=== PATIENT | male | born 1975 | race Caucasian/White ===

== ENCOUNTER → 2021-03-13 10:57 | Outpatient (BNVA) | payer SELFPAY | PROVIDERS: Family Provider Nurse Practitioner; PCP Family Medicine Adult Medicine; Visit Provider Family Medicine Adult Medicine | DX: M10.9 Gout, unspecified (principal); R03.0 Elevated blood-pressure reading, without diagnosis of hypertension; E66.9 Obesity, unspecified; Z83.3 Family history of diabetes mellitus | CPT/HCPCS: 80053; 83036; 84443; 84550; 85025 ==

== ENCOUNTER 2021-09-15 05:01 | Inpatient (IN) | payer OTHER, SELFPAY ==
[2021-09-15] VITALS (13 sets, daily range): BP systolic 117–192; BP diastolic 76–109; PULSE 89–116; RESP 18–22; TEMP 36.9–37.9; O2SAT 87–94; BMI 41.3; BMI 39.8
--- NOTE | 2021-09-15 05:19 | PC.NURSE ---
asked to wait in vehicle due to her being positive for covid as well.
--- NOTE | 2021-09-15 05:21 | XRR_ITS ---
PROCEDURE INFORMATION: Exam: XR Chest Exam date and time: 09/15/2021 5:21 AM Age: 45 years old Clinical indication: Patient HX: SOB coughing , positive for covid TECHNIQUE: Imaging protocol: XR of the chest. Views: 1 view. Total images: 1 COMPARISON: CR Chest 1 [place] [id number] 02/10/2015 2:05 PM FINDINGS: Lungs: Bilateral patchy airspace densities, favoring pneumonia, possibly atypical pneumonia. Pleural spaces: Unremarkable. No pleural effusion. No pneumothorax. Heart/Mediastinum: Low lung volumes are present, accentuating cardiac size and pulmonary markings. Bones/joints: Osseous structures are unchanged from the prior exam. XR/XR chest 1V portable [id number] IMPRESSION: 1. Bilateral patchy airspace densities, favoring pneumonia, possibly atypical pneumonia. 2. Low lung volumes are present, accentuating cardiac size and pulmonary markings.
--- NOTE | 2021-09-15 05:25 | ED_ITS ---
Documented by User: Damion Cooley MD 09/17/21 06:16 HPI - COVID General: Chief Complaint: COVID symptoms Stated Complaint: Covid +\N\V SOB Time Seen by Provider: 09/15/21 05:04 Source: patient Mode of arrival: ambulatory Limitations: no limitations Triage information: Has fever, cough or shortness of breath . No known COVID + exposure last 14 days History of Present Illness: HPI Narrative: 35-year-old male who has had cough congestion body aches nausea vomiting for roughly 11 days now he did test positive for Covid last week. He states that over the last 2 days he is just had increasing cough shortness of breath a lot of nausea vomiting states he is unable to tolerate any p.o. when he feels dehydrated patient is hypoxic here when he walked into the room and is 85% up after sitting for a while went up to 89% on room air. He has had body aches and fevers denies any chest pain. COVID 19 common symptoms: positive fever(s), chills, dyspnea, body aches, nausea and vomiting; negative headache(s) or throat pain COVID 19 other sytmptoms: negative chest pain COVID Results: SARS-CoV-2 Antigen (Rapid) Positive (Negative) H 09/15/21 07:32 09/15/21 Nasal/Oral Coronavirus 2019 PCR Detected H 09/15/21 07:34 09/15/21 Review of Systems Const: Reports: fever(s), chills and body aches Eyes: Denies: blurry vision or eye discomfort ENMT: Denies: throat pain or dental pain Card: Denies: chest pain Resp: Reports: dyspnea GI: Reports: nausea and vomiting : Denies: dysuria Musc: Denies: neck pain or back pain Skin/Breast: Denies: rash Neuro: Denies: headache(s) Psych: Denies: depression Nicholas/Lymph: Denies: easy bruising All/Imm: Denies: urticaria PFSH ED PFSH: Medical History Elevated blood pressure reading Family history of diabetes mellitus Gout of right foot Morbid obesity with BMI of 40.0-44.9, adult Family History Other Diabetes Hyperlipidemia Hypertension Social History Smoking and tobacco status: former smoker Alcohol intake: never Marital status: Life Partner Number of children: 0 Current occupational status: employed Physical Exam Const: COMMON NORMALS: patient oriented x3 GENERAL APPEARANCE: ill appearing HENMT: COMMON NORMALS: normocephalic and atraumatic HEAD & SCALP: n ormocephalic and atraumatic Eye: COMMON NORMALS: Equal, round and reactive pupils present and EOMs intact bilaterally PUPIL: Yes Equal, round and reactive pupils present Neck/C-Spine: COMMON NORMALS: full ROM and supple Chest: COMMONS NORMALS: normal inspection of the chest and normal palpation of entire chest wall Resp: COMMON NORMALS: normal respiratory effort, No retractions and No use of accessory muscles AUSCULTATION: rales Cardio: COMMON NORMALS: regular rate, regular rhythm and No murmurs present (Cardio) RATE: regular rate RHYTHM: regular rhythm GI: COMMON NORMALS: Normal to inspection, nondistended, normoactive bowel sounds present, Soft to palpation, non-tender and no masses PALPATION: Yes Soft to palpation Extremity: COMMON NORMALS: normal to inspection and full ROM Neuro: COMMON NORMALS: patient oriented x3, moves all extremities and no focal motor deficits Psych: COMMON NORMALS: mental status grossly normal, Normal thought process present and cooperative THOUGHT PROCESS: Normal thought process present Skin: COMMON NORMALS: no rashes or lesions noted and no wounds GENERAL SKIN EXAM: no rashes or lesions noted Course Vital Signs: Vital signs: Vital Signs Temperature 98.3 F 09/18/21 16:02 Pulse Rate 82 09/18/21 16:02 Respiratory Rate 17 09/18/21 16:02 Blood Pressure 125/80 09/18/21 16:02 Pulse Oximetry 90 09/18/21 16:02 MDM - COVID MDM Narrative: Medical decision making narrative: Patient presents here with cough fever and Covid patient's care was turned over to Dr. العلي at shift change Lab Data: Labs: Lab Results 09/15/21 09/15/21 09/15/21 05:49 06:10 06:10 WBC RBC Hgb Hct MCV MCH MCHC RDW Plt Count MPV Neut % (Auto) Lymph % (Auto) [place] % (Auto) Eos % (Auto) Baso % (Auto) Neut # (Auto) Lymph # (Auto) [place] # (Auto) Eos # (Auto) Baso # (Auto) Nucleated RBC % (a uto) Nucleated RBCs # D-Dimer 1.27 ug/mIFEU H u g/mIFEU (0-0.59) Specimen Type Venous Sample Site Radial, left ABG pH 7.46 H (7.35-7.45) ABG pCO2 38.3 mmHg mmHg (35-45) ABG pO2 37.2 mmHg L* mmHg (80.0-100.0) ABG HCO3 27.4 mmol/L H mmo l/L (22-26) ABG Base Excess 3.5 mmol/L H mmol /L (-2.0-2.0) Arnaud Test Pos Hematocrit 53.5 % H % (42-52) O2 Delivery Device Nc O2 Liters/Min 3.0 % % Drier Tender Naphthalene ID Joner Sodium 133 mmol/L L mmol /L (136-145) Potassium 3.7 mmol/L mmol/L (3.5-5.1) Chloride 95 mmol/L L mmol/ L (98-107) Carbon Dioxide 21 mmol/L L mmol/ L (22-29) Anion Gap 20.7 H (5-19) BUN 17 mg/dL mg/dL (6-20) Creatinine 0.8 mg/dL mg/dL (0.7-1.2) GFR Calculation 104.1 mL/min mL/m in (90-130) Glucose 129 mg/dL H mg/dL (65-115) Estimat Average Gl ucose Hemoglobin A1c Calculated Osmolal ity 279 mOsm/kg L mOs m/kg (285-295) Lactic Acid Calcium 8.6 mg/dL mg/dL (8.5-10.5) Ferritin 708 ng/mL H ng/mL (30-400) Total Bilirubin 0.4 mg/dL mg/dL (0.15-1.2) AST 34 U/L U/L (0-40) ALT 36 U/L U/L (0-41) Alkaline Phosphata se 81 IU/L IU/L (40-130) C-Reactive Protein 63.0 mg/L H mg/L (0.0-4.9) NT-Pro-B Natriuret Pep 5 pg/mL pg/mL (0-125) Total Protein 7.6 g/dL g/dL (6.6-8.7) Albumin 4.3 g/dL g/dL (3.5-5.2) Globulin 3.3 g/dL g/dL (1.3-4.6) Procalcitonin TSH Nasal/Oral COVID-1 9 PCR SARS-CoV-2 Ag (Rap id) 09/15/21 09/15/21 09/15/21 06:10 06:17 06:17 WBC 7.8 10^3/uL 10^3/ uL (4.0-10.0) RBC 5.64 10^6/uL H 10 ^6/uL (4.1-5.3) Hgb 15.6 g/dL g/dL (11.7-16.6) Hct 46.3 % % (42.0-52.0) MCV 82.1 fl fl (80-94) MCH 27.7 pg L pg (28.0-34.0) MCHC 33.7 g/dL g/dL (30.0-36.0) RDW 13.5 % % (12.1-15.1) Plt Count 306 10^3/cmm 10^3 /cmm (130-400) MPV 9.6 fL fL (7.4-10.4) Neut % (Auto) 79.1 % % Lymph % (Auto) 12.1 % % [place] % (Auto) 7.7 % % Eos % (Auto) 0.0 % % Baso % (Auto) 0.3 % % Neut # (Auto) 6.17 10^3/uL 10^3 /uL (1.8-7.7) Lymph # (Auto) 0.9 10^3/uL 10^3/ uL (0.8-4.8) [place] # (Auto) 0.6 10^3/uL 10^3/ uL (0.2-0.9) Eos # (Auto) 0.0 10^3/uL 10^3/ uL (0.0-0.8) Baso # (Auto) 0.0 10^3/uL 10^3/ uL (0.0-0.1) Nucleated RBC % (a uto) 0 % % Nucleated RBCs # 0.0 /100WBC /100W BC D-Dimer Specimen Type Sample Site ABG pH ABG pCO2 ABG pO2 ABG HCO3 ABG Base Excess Arnaud Test Hematocrit O2 Delivery Device O2 Liters/Min Drier Tender Naphthalene ID Sodium Potassium Chloride Carbon Dioxide Anion Gap BUN Creatinine GFR Calculation Glucose Estimat Average Gl ucose 146 Hemoglobin A1c 6.7 % H % (4.0-6.0) Calculated Osmolal ity Lactic Acid 1.2 mmol/L mmol/L (0.5-2.2) Calcium Ferritin Total Bilirubin AST ALT Alkaline Phosphata se C-Reactive Protein NT-Pro-B Natriuret Pep Total Protein Albumin Globulin Procalcitonin TSH Nasal/Oral COVID-1 9 PCR SARS-CoV-2 Ag (Rap id) 09/15/21 09/15/21 09/15/21 06:17 07:32 07:34 WBC RBC Hgb Hct MCV MCH MCHC RDW Plt Count MPV Neut % (Auto) Lymph % (Auto) [place] % (Auto) Eos % (Auto) Baso % (Auto) Neut # (Auto) Lymph # (Auto) [place] # (Auto) Eos # (Auto) Baso # (Auto) Nucleated RBC % (a uto) Nucleated RBCs # D-Dimer Specimen Type Sample Site ABG pH ABG pCO2 ABG pO2 ABG HCO3 ABG Base Excess Arnaud Test Hematocrit O2 Delivery Device O2 Liters/Min Drier Tender Naphthalene ID Sodium Potassium Chloride Carbon Dioxide Anion Gap BUN Creatinine GFR Calculation Glucose Estimat Average Gl ucose Hemoglobin A1c Calculated Osmolal ity Lactic Acid Calcium Ferritin Total Bilirubin AST ALT Alkaline Phosphata se C-Reactive Protein NT-Pro-B Natriuret Pep Total Protein Albumin Globulin Procalcitonin 0.19 ng/mL ng/mL (0-0.5) TSH 1.68 uIU/mL uIU/m L (0.27-4.20) Nasal/Oral COVID-1 9 PCR Detected H SARS-CoV-2 Ag (Rap id) Positive H (Negative) COVID Results: SARS-CoV-2 Antigen (Rapid) Positive (Negative) H 09/15/21 07:32 09/15/21 Nasal/Oral Coronavirus 2019 PCR Detected H 09/15/21 07:34 09/15/21 Discharge Plan Discharge Patient Disposition: Admitted As Inpatient Admit Provider: Onur Segundo Clinical Impression: COVID-19, Acute respiratory failure with hypoxemia, Morbid obesity with BMI of 40.0-44.9, adult Condition: Stable Discharge Diet: Regular Sign Out Sign Out Data: Patient Sign Out occurred on 09/15/21 at 06:26. Patient's care was discussed, and care was transferred from to Mohamud Carpenter DO. Coding Level of Care Code ED Pit Supervisor for Chg Fwd Exam Comprehensive Documented by User: Mohamud Carpenter DO 09/18/21 16:51 HPI - COVID General: Chief Complaint: COVID symptoms Stated Complaint: Covid +\N\V SOB Time Seen by Provider: 09/15/21 05:04 COVID Results: SARS-CoV-2 Antigen (Rapid) Positive (Negative) H 09/15/21 07:32 09/15/21 Nasal/Oral Coronavirus 2019 PCR Detected H 09/15/21 07:34 09/15/21 PFSH ED PFSH: Medical History Elevated blood pressure reading Family history of diabetes mellitus Gout of right foot Morbid obesity with BMI of 40.0-44.9, adult Family History Other Diabetes Hyperlipidemia Hypertension Social History Smoking and tobacco status: former smoker Alcohol intake: never Marital status: Life Partner Number of children: 0 Current occupational status: employed Course Vital Signs: Vital signs: Vital Signs Temperature 98.3 F 09/18/21 16:02 Pulse Rate 82 09/18/21 16:02 Respiratory Rate 17 09/18/21 16:02 Blood Pressure 125/80 09/18/21 16:02 Pulse Oximetry 90 09/18/21 16:02 MDM - COVID MDM Narrative: Medical decision making narrative: Care assumed a change of shift. Patient will be admitted COVID-19 acute hypoxic respiratory failure. Discussed with Dr. [place] orders written Lab Data: Labs: Lab Results 09/15/21 09/15/21 09/15/21 05:49 06:10 06:10 WBC RBC Hgb Hct MCV MCH MCHC RDW Plt Count MPV Neut % (Auto) Lymph % (Auto) [place] % (Auto) Eos % (Auto) Baso % (Auto) Neut # (Auto) Lymph # (Auto) [place] # (Auto) Eos # (Auto) Baso # (Auto) Nucleated RBC % (a uto) Nucleated RBCs # D-Dimer 1.27 ug/mIFEU H u g/mIFEU (0-0.59) Specimen Type Venous Sample Site Radial, left ABG pH 7.46 H (7.35-7.45) ABG pCO2 38.3 mmHg mmHg (35-45) ABG pO2 37.2 mmHg L* mmHg (80.0-100.0) ABG HCO3 27.4 mmol/L H mmo l/L (22-26) ABG Base Excess 3.5 mmol/L H mmol /L (-2.0-2.0) Arnaud Test Pos Hematocrit 53.5 % H % (42-52) O2 Delivery Device Nc O2 Liters/Min 3.0 % % Drier Tender Naphthalene ID Suri Sodium 133 mmol/L L mmol /L (136-145) Potassium 3.7 mmol/L mmol/L (3.5-5.1) Chloride 95 mmol/L L mmol/ L (98-107) Carbon Dioxide 21 mmol/L L mmol/ L (22-29) Anion Gap 20.7 H (5-19) BUN 17 mg/dL mg/dL (6-20) Creatinine 0.8 mg/dL mg/dL (0.7-1.2) GFR Calculation 104.1 mL/min mL/m in (90-130) Glucose 129 mg/dL H mg/dL (65-115) Estimat Average Gl ucose Hemoglobin A1c Calculated Osmolal ity 279 mOsm/kg L mOs m/kg (285-295) Lactic Acid Calcium 8.6 mg/dL mg/dL (8.5-10.5) Ferritin 708 ng/mL H ng/mL (30-400) Total Bilirubin 0.4 mg/dL mg/dL (0.15-1.2) AST 34 U/L U/L (0-40) ALT 36 U/L U/L (0-41) Alkaline Phosphata se 81 IU/L IU/L (40-130) C-Reactive Protein 63.0 mg/L H mg/L (0.0-4.9) NT-Pro-B Natriuret Pep 5 pg/mL pg/mL (0-125) Total Protein 7.6 g/dL g/dL (6.6-8.7) Albumin 4.3 g/dL g/dL (3.5-5.2) Globulin 3.3 g/dL g/dL (1.3-4.6) Procalcitonin TSH Nasal/Oral COVID-1 9 PCR SARS-CoV-2 Ag (Rap id) 09/15/21 09/15/21 09/15/21 06:10 06:17 06:17 WBC 7.8 10^3/uL 10^3/ uL (4.0-10.0) RBC 5.64 10^6/uL H 10 ^6/uL (4.1-5.3) Hgb 15.6 g/dL g/dL (11.7-16.6) Hct 46.3 % % (42.0-52.0) MCV 82.1 fl fl (80-94) MCH 27.7 pg L pg (28.0-34.0) MCHC 33.7 g/dL g/dL (30.0-36.0) RDW 13.5 % % (12.1-15.1) Plt Count 306 10^3/cmm 10^3 /cmm (130-400) MPV 9.6 fL fL (7.4-10.4) Neut % (Auto) 79.1 % % Lymph % (Auto) 12.1 % % [place] % (Auto) 7.7 % % Eos % (Auto) 0.0 % % Baso % (Auto) 0.3 % % Neut # (Auto) 6.17 10^3/uL 10^3 /uL (1.8-7.7) Lymph # (Auto) 0.9 10^3/uL 10^3/ uL (0.8-4.8) [place] # (Auto) 0.6 10^3/uL 10^3/ uL (0.2-0.9) Eos # (Auto) 0.0 10^3/uL 10^3/ uL (0.0-0.8) Baso # (Auto) 0.0 10^3/uL 10^3/ uL (0.0-0.1) Nucleated RBC % (a uto) 0 % % Nucleated RBCs # 0.0 /100WBC /100W BC D-Dimer Specimen Type Sample Site ABG pH ABG pCO2 ABG pO2 ABG HCO3 ABG Base Excess Arnaud Test Hematocrit O2 Delivery Device O2 Liters/Min Drier Tender Naphthalene ID Sodium Potassium Chloride Carbon Dioxide Anion Gap BUN Creatinine GFR Calculation Glucose Estimat Average Gl ucose 146 Hemoglobin A1c 6.7 % H % (4.0-6.0) Calculated Osmolal ity Lactic Acid 1.2 mmol/L mmol/L (0.5-2.2) Calcium Ferritin Total Bilirubin AST ALT Alkaline Phosphata se C-Reactive Protein NT-Pro-B Natriuret Pep Total Protein Albumin Globulin Procalcitonin TSH Nasal/Oral COVID-1 9 PCR SARS-CoV-2 Ag (Rap id) 09/15/21 09/15/21 09/15/21 06:17 07:32 07:34 WBC RBC Hgb Hct MCV MCH MCHC RDW Plt Count MPV Neut % (Auto) Lymph % (Auto) [place] % (Auto) Eos % (Auto) Baso % (Auto) Neut # (Auto) Lymph # (Auto) [place] # (Auto) Eos # (Auto) Baso # (Auto) Nucleated RBC % (a uto) Nucleated RBCs # D-Dimer Specimen Type Sample Site ABG pH ABG pCO2 ABG pO2 ABG HCO3 ABG Base Excess Arnaud Test Hematocrit O2 Delivery Device O2 Liters/Min Drier Tender Naphthalene ID Sodium Potassium Chloride Carbon Dioxide Anion Gap BUN Creatinine GFR Calculation Glucose Estimat Average Gl ucose Hemoglobin A1c Calculated Osmolal ity Lactic Acid Calcium Ferritin Total Bilirubin AST ALT Alkaline Phosphata se C-Reactive Protein NT-Pro-B Natriuret Pep Total Protein Albumin Globulin Procalcitonin 0.19 ng/mL ng/mL (0-0.5) TSH 1.68 uIU/mL uIU/m L (0.27-4.20) Nasal/Oral COVID-1 9 PCR Detected H SARS-CoV-2 Ag (Rap id) Positive H (Negative) COVID Results: SARS-CoV-2 Antigen (Rapid) Positive (Negative) H 09/15/21 07:32 12/17/21 Nasal/Oral Coronavirus 2019 PCR Detected H 09/15/21 07:34 09/15/21 Discharge Plan Discharge Patient Disposition: Admitted As Inpatient Admit Provider: Onur Segundo Clinical Impression: COVID-19, Acute respiratory failure with hypoxemia, Morbid obesity with BMI of 40.0-44.9, adult Condition: Stable Discharge Diet: Regular Sign Out Sign Out Data: Patient Sign Out occurred on 09/15/21 at 06:26. Patient's care was discussed, and care was transferred from to Mohamud Carpenter DO. Coding Level of Care Code ED Pit Supervisor for Chg Fwd Exam Comprehensive
[2021-09-15 06:00] LABS: ABG PCO2 38.3 mmHg (35-45); ABG PH Result 7.46 (7.35-7.45); Arterial Blood Gas Hematocrit 53.5 % (42-52); Base Excess ABG 3.5 mmol/L (-2.0-2.0); Blood Gas Allen Test Pos; HCO3 ABG 27.4 mmol/L (22-26); PO2 ABG 37.2 mmHg (80.0-100.0)
[2021-09-15 06:05] LABS: Blood Gas Sample Type Venous
[2021-09-15 06:06] LABS: Blood Gas Sample Site Radial, left; Oxygen Device NC
[2021-09-15] MEDS: ondansetron 2 mg/ML SDV 2 mL 4 MG IV (06:11)
[2021-09-15] MEDS: dexamethasone 4 mg/mL INJ 6 MG IVP (06:13)
[2021-09-15] MEDS: sodium chloride 0.9% 1,000 ML 999 ML IV (06:16)
[2021-09-15] MEDS: acetaminophen 325 mg Tablet 650 MG PO ×2 (06:18→22:00)
[2021-09-15 06:33] LABS: Basophils % 0.3 %; Hematocrit 46.3 % (42.0-52.0); Hemoglobin 15.6 g/dL (11.7-16.6); Lymphocytes # 0.9 10^3/uL (0.8-4.8); Lymphocytes % 12.1 %; Mean Corpuscular HGB Conc 33.7 g/dL (30.0-36.0); Mean Corpuscular Hemoglobin 27.7 pg (28.0-34.0); Mean Corpuscular Volume 82.1 fl (80-94); Mean Platelet Volume 9.6 fL (7.4-10.4); Monocytes # 0.6 10^3/uL (0.2-0.9); Monocytes % 7.7 %; Neutrophils # 6.17 10^3/uL (1.8-7.7); Neutrophils % 79.1 %; Nucleated Red Blood Cells % 0 %; Platelet Count 306 10^3/cmm (130-400); Red Blood Count 5.64 10^6/uL (4.1-5.3); Red Cell Distribution Width 13.5 % (12.1-15.1); White Blood Count 7.8 10^3/uL (4.0-10.0)
[2021-09-15 07:04] LABS: Alanine Aminotransferase 36 U/L (0-41); Albumin Level 4.3 g/dL (3.5-5.2); Alkaline Phosphatase 81 IU/L (40-130); Anion Gap 20.7 (5-19); Aspartate Amino Transferase 34 U/L (0-40); Blood Urea Nitrogen 17 mg/dL (6-20); Calcium 8.6 mg/dL (8.5-10.5); Carbon Dioxide 21 mmol/L (22-29); Chloride 95 mmol/L (98-107); Ferritin 708 ng/mL (30-400); Globulin 3.3 g/dL (1.3-4.6); Glomerular Filtration Rate 104.1 mL/min (90-130); Glucose 129 mg/dL (65-115); Lactic Sepsis W/Reflex 1.2 mmol/L (0.5-2.2); NT Pro B Type Natriuretic Pept 5 pg/mL (0-125); Osmolality Calculated 279 mOsm/kg (285-295); Potassium 3.7 mmol/L (3.5-5.1); Sodium 133 mmol/L (136-145); Total Bilirubin 0.4 mg/dL (0.15-1.2); Total Protein 7.6 g/dL (6.6-8.7)
--- NOTE | 2021-09-15 07:35 | PC.NURSE ---
Received report from Josephine ARITA. Pt reporting he does feel much better then upon arrival. Pt currently on 3L O2 and stated he does not normally wear oxygen at home.
[2021-09-15 08:16] LABS: SARS Covid-2 Antigen Positive (Negative)
--- NOTE | 2021-09-15 09:20 | P.HP_ITS ---
Providers/Chief Complaint Primary Care Provider: Rayo Lin MD Chief Complaint: Covid +\N\V SOB History of Present Illness Jasson Hess is a 45 year old male who presents with history of illness since the sixth. It started with cough and nasal congestion, culminating in significant shortness of breath, cough with some posttussive emesis, diaphoresis. He denies any chest pain, or hemoptysis. He reports he has not been able to eat or drink well since getting illness. Family members have been ill with similar symptoms. He is not vaccinated. He does feel less short of breath on oxygen. Review of Systems General: Reports: 10 or more systems reviewed and unremarkable except in HPI and below Const: Reports: fever(s), chills, body aches and malaise Eyes: Denies: change in vision ENMT: Denies: throat pain Card: Denies: chest pain Resp: Reports: dyspnea and productive cough GI: Reports: diarrhea; Denies: abdominal pain : Denies: flank pain Musc: Denies: neck pain or back pain Skin/Breast: Denies: rash Neuro: Denies: headache(s) Psych: Denies: anxiety or depression Endo: Denies: polyuria Nicholas/Lymph: Denies: easy bruising All/Imm: Denies: urticaria Medications/Allergies Home Medications Medication Instructions Recorded Confirmed Last Taken Type bupropion HCl 150 mg tablet,12 hr 150 mg PO QAM #30 tab 04/17/21 04/17/21 Unknown Rx sustained-release indomethacin 50 mg capsule 50 mg PO QID PRN cap 04/17/21 04/17/21 Unknown History allopurinol 300 mg tablet 150 mg PO BID 90 Days #90 tab 05/10/21 Unknown Rx Allergies Allergy/AdvReac Type Severity Reaction Status Date / Time No Known Allergies Allergy Verified 04/17/21 09:31 PFSH Acute PFSH: Medical History Elevated blood pressure reading Family history of diabetes mellitus Gout of right foot Morbid obesity with BMI of 40.0-44.9, adult Family History Other Diabetes Hyperlipidemia Hypertension Social History Smoking and tobacco status: former smoker Alcohol intake: never Marital status: Life Partner Number of children: 0 Current occupational status: employed [employer] Information: Denies surgical history Vitals/I&O/Wt Last Vital Signs Temp 100.3 F H 09/15/21 05:07 Pulse 91 09/15/21 07:11 Resp 20 H 09/15/21 07:11 BP 130/89 09/15/21 07:11 Pulse Ox 93 09/15/21 07:11 Weight last 48 hrs Weight 123.377 kg Physical Exam Narrative: EXAM NARRATIVE: General exam is a gregarious male who is tachypneic, and from my discussion with the emergency department physician obviously dyspneic with some accessory muscle use on arrival prior to being placed on 3 L of oxygen. HEENT: Pupils equally round. Oropharynx clear. Neck is supple no lymphadenopathy or thyromegaly Cardiovascular regular rate and rhythm, no murmur Lungs few scattered crackles bilaterally Abdomen is soft with positive bowel sounds. Obese. No obvious organomegaly exam is deferred Extremities no cyanosis clubbing or edema, cap refill brisk Skin no rash Neuro no focal deficits. Data : 09/15/21 06:17 09/15/21 06:10 Micro: Microbiology 09/15/21 06:50 Blood Culture - Preliminary Blood SPECIMEN COLLECTED 09/15/21 06:10 Blood Culture - Preliminary Blood SPECIMEN COLLECTED Other data: Chest x-ray multiple bilateral opacities consistent with interst itial infiltrates and Covid Rapid Covid positive ABG demonstrates a pH 7.46, PCO2 of 38, PO2 37 ?VBG CMP demonstrates normal lactic acid at 1.2, normal LFTs, elevated ferritin. CRP 63 A&P Assessment and plan (1) Acute respiratory failure with hypoxemia: Oxygen initiated in the emergency department with improvement in symptoms of tachypnea Status: Acute (2) Pneumonia due to COVID-19 virus: Patient initially had symptom onset around the sixth, tested positive at outside laboratory on the eighth. Remdesivir, dexamethasone initiated For any worsening and continued inflammatory marker elevation consider baricitinib or Actemra Pulmonary toilet Incentive spirometry Prone is much as possible Repeat CRP tomorrow Check procalcitonin Doxycycline p.o. empirically Blood culture has been done Sputum culture Status: Acute Additional A&P Information Multiple other stable medical problems as outlined in past medical history including gout Slight elevation in sugar. Check TSH and hemoglobin A1c Full code Lovenox for DVT prophylaxis Pepcid for GI prophylaxis Attestations Medical Necessity Statement*: Will need greater than two midnight stay for treatment of Covid 19 pneumonia, severe with acute hypoxic respiratory failure Time Spent in Patient Care: Greater than 35 minutes Coding Level of Care Code Acute Marine Engineering Professor for [facility] Fwd Diagnoses Acute respiratory failure with hypoxemia J96.01 Pneumonia due to COVID-19 virus U07.1; J12.82
[2021-09-15 10:02] LABS: D Dimer 1.27 ug/mIFEU (0-0.59)
[2021-09-15 10:11] LABS: Estmated Average Glucose 146; Hemoglobin A1C 6.7 % (4.0-6.0)
[2021-09-15 10:13] LABS: Procalcitonin 0.19 ng/mL (0-0.5); Thyroid Stimulating Hormone 1.68 uIU/mL (0.27-4.20)
[2021-09-15] MEDS: remdesivir 200 MG in sodium chloride 0.9% (100 ml) 60 ML 100 MG IV (10:59)
[2021-09-15 14:39] LABS: Coronavirus Test Green County Detected
--- NOTE | 2021-09-15 16:51 | PC.NURSE ---
Report called to Zayra on Med Surg. Pt is going to room 269-8
[2021-09-15] MEDS: famotidine 20 mg Tablet PO (18:31)
[2021-09-15] MEDS: doxycycline 100 mg Tablet PO (18:31)
[2021-09-15] MEDS: allopurinol 300 mg Tablet 150 MG PO (18:31)
[2021-09-15] MEDS: enoxaparin 40 mg/0.4 mL Syringe SUBCUT (18:32)
[2021-09-15 21:18] LABS: Glucose Point of Care 118 mg/dL (70-110)
[2021-09-16] VITALS (10 sets, daily range): BP systolic 129–148; BP diastolic 71–86; PULSE 65–112; RESP 16–32; TEMP 36.5–37.7; O2SAT 87–93
[2021-09-16] MEDS: ipratropium-albuterol 3 mL Neb INHALATION (02:06)
[2021-09-16] MEDS: buPROPion SR (12 HR) 150 mg Tablet PO (06:04)
[2021-09-16] MEDS: remdesivir 100 MG in sodium chloride 0.9% (100 ml) 80 ML IV (06:04)
[2021-09-16] MEDS: dexamethasone 10 mg/mL INJ 6 MG IVP (06:10)
--- NOTE | 2021-09-16 06:28 | PC.NURSE ---
VITAL SIGN ASSESSMENT: WHEN ENTERING THE PATIENT ROOM IT WAS NOTED THE PATIENT WAS EXPERIENCING PURSED LIP BREATHING. AT THIS TIME THE O2 LEVEL WAS 73%. OXYGEN TURNED UP FROM 7 L TO 10 L WITH IMPROVEMENT TO 86%. UNFORTUNATELY THE LEVELS BEGAN TO DROP AND BOUNCE BETWEEN 85 AND 80%. THIS NURSE APPLIED AN OXY MASK AND 8 LITERS OF OXYGEN. THE PATIENT THEN PROGRESSED TO 91% O2 SATS. PATIENTS PRIMARY NURSE IN ROOM AT THIS TIME WELL.
[2021-09-16 06:39] LABS: Basophils % 0.3 %; Hematocrit 45.4 % (42.0-52.0); Hemoglobin 14.4 g/dL (11.7-16.6); Lymphocytes # 1.4 10^3/uL (0.8-4.8); Lymphocytes % 17.3 %; Mean Corpuscular HGB Conc 31.7 g/dL (30.0-36.0); Mean Corpuscular Hemoglobin 27.6 pg (28.0-34.0); Mean Platelet Volume 9.6 fL (7.4-10.4); Monocytes # 0.7 10^3/uL (0.2-0.9); Monocytes % 8.8 %; Nucleated Red Blood Cells % 0 %; Platelet Count 299 10^3/cmm (130-400); Red Blood Count 5.22 10^6/uL (4.1-5.3); Red Cell Distribution Width 13.9 % (12.1-15.1); White Blood Count 7.8 10^3/uL (4.0-10.0)
--- NOTE | 2021-09-16 06:45 | PC.NURSE ---
CHASTITY Rodriguez entered room to obtain vital signs at approxiamtely 0500. Patient was noted to short of breath, had pursed lip breathing, and oxygen saturations were down to 73% on 7L nasal canula. Patient was moved to sit in a chair and placed on 8L oxymask. Patient recovered to 91% after a couple minutes when this nurse walked into the room. Patient was saturating 95% around 0600 on the 8L.
[2021-09-16 06:59] LABS: Glucose Point of Care 132 mg/dL (70-110)
[2021-09-16 06:59] LABS: Glucose Point of Care 120 mg/dL (70-110)
[2021-09-16 07:00] LABS: Alanine Aminotransferase 32 U/L (0-41); Albumin Level 3.8 g/dL (3.5-5.2); Alkaline Phosphatase 70 IU/L (40-130); Anion Gap 24.1 (5-19); Aspartate Amino Transferase 37 U/L (0-40); Blood Urea Nitrogen 18 mg/dL (6-20); C Reactive Protein 64.2 mg/L (0.0-4.9); Calcium 8.3 mg/dL (8.5-10.5); Carbon Dioxide 19 mmol/L (22-29); Chloride 99 mmol/L (98-107); Creatinine Clr Calc Pharmacy 115.6414; Globulin 3.3 g/dL (1.3-4.6); Glomerular Filtration Rate 80.4 mL/min (90-130); Glucose 127 mg/dL (65-115); Osmolality Calculated 289 mOsm/kg (285-295); Potassium 4.1 mmol/L (3.5-5.1); Sodium 138 mmol/L (136-145); Total Bilirubin 0.4 mg/dL (0.15-1.2); Total Protein 7.1 g/dL (6.6-8.7)
[2021-09-16] MEDS: doxycycline 100 mg Tablet PO (09:27)
[2021-09-16] MEDS: allopurinol 300 mg Tablet 150 MG PO ×2 (09:28→17:15)
[2021-09-16] MEDS: famotidine 20 mg Tablet PO ×2 (09:29→17:16)
[2021-09-16 11:08] LABS: Glucose Point of Care 175 mg/dL (70-110)
[2021-09-16] MEDS: insulin lispro 100 unit/1 mL SUBCUT (12:06)
--- NOTE | 2021-09-16 15:47 | P.PN_ITS ---
Subjective Subjective: Interval history: Patient is doing well on 5 nasal cannula he is endorsing feeling better, was able to finish his meal today Afebrile Vitals/I&O/Wt Last Vital Signs Temp 98.2 F 09/16/21 12:00 Pulse 96 09/16/21 12:00 Resp 32 H 09/16/21 12:00 BP 129/78 09/16/21 12:00 Pulse Ox 89 L 09/16/21 12:00 09/16/21 09/16/21 09/16/21 06:59 14:59 22:59 Intake Total 400 / 400 Output Total 350 / 350 Balance 50 / 50 Weight last 48 hrs Weight 118.841 kg Weight 123.377 kg Physical Exam Narrative: EXAM NARRATIVE: Sitting in recliner Saturating well on 5 L cannula No active rhonchi or wheezing Productive cough brown-yellow sputum Distended abdomen, visceral obesity No signs of edema EOMI, PERRLA Nonfocal neuro exam Data : 09/16/21 06:25 09/16/21 06:25 Micro: Microbiology 09/15/21 06:50 Blood Culture - Preliminary Blood NEGATIVE TO DATE 09/15/21 06:10 Blood Culture - Preliminary Blood NEGATIVE TO DATE A&P Assessment and plan (1) Pneumonia due to COVID-19 virus: Status: Acute Additional A&P Information Hypoxia related to COVID-19 without respiratory failure No signs of conversational dyspnea Doing well on 5 L nasal cannula Continue steroids and antiviral Plan to discharge him on Saturday if he stays clinically stable New diagnosis of type 2 diabetes start Lantus 10 units along with sliding scale and consistent carb diet Hemoglobin A1c 6.7. Attestations Medical Necessity Statement*: cx med rx Time Spent in Patient Care: less than 15 minutes Coding Level of Care Code Acute Quality Assurance Inspector for Chg Fwd Diagnoses Pneumonia due to COVID-19 virus U07.1; J12.82
[2021-09-16] MEDS: enoxaparin 40 mg/0.4 mL Syringe SUBCUT (17:16)
[2021-09-16 17:27] LABS: Glucose Point of Care 142 mg/dL (70-110)
[2021-09-16] MEDS: insulin glargine 100 units/1 mL 10 UNIT SUBCUT (21:59)
[2021-09-17] VITALS (11 sets, daily range): BP systolic 116–143; BP diastolic 65–87; PULSE 64–100; RESP 15–18; TEMP 36.8–37.8; O2SAT 85–95
[2021-09-17 03:06] LABS: Basophils % 0.3 %; Hematocrit 40.7 % (42.0-52.0); Hemoglobin 13.6 g/dL (11.7-16.6); Lymphocytes # 1.5 10^3/uL (0.8-4.8); Lymphocytes % 21.1 %; Mean Corpuscular HGB Conc 33.4 g/dL (30.0-36.0); Mean Corpuscular Hemoglobin 27.9 pg (28.0-34.0); Mean Corpuscular Volume 83.4 fl (80-94); Mean Platelet Volume 10.1 fL (7.4-10.4); Monocytes # 0.7 10^3/uL (0.2-0.9); Monocytes % 9.7 %; Neutrophils % 68.5 %; Nucleated Red Blood Cells % 0 %; Platelet Count 309 10^3/cmm (130-400); Red Blood Count 4.88 10^6/uL (4.1-5.3); Red Cell Distribution Width 13.8 % (12.1-15.1); White Blood Count 7.2 10^3/uL (4.0-10.0)
[2021-09-17 03:40] LABS: Anion Gap 19.8 (5-19); Blood Urea Nitrogen 19 mg/dL (6-20); C Reactive Protein 77.4 mg/L (0.0-4.9); Calcium 8.3 mg/dL (8.5-10.5); Carbon Dioxide 22 mmol/L (22-29); Chloride 99 mmol/L (98-107); Creatinine Clr Calc Pharmacy 115.6414; Glomerular Filtration Rate 80.4 mL/min (90-130); Glucose 115 mg/dL (65-115); Osmolality Calculated 287 mOsm/kg (285-295); Potassium 3.8 mmol/L (3.5-5.1); Sodium 137 mmol/L (136-145)
[2021-09-17] MEDS: dexamethasone 10 mg/mL INJ 6 MG IVP (06:13)
[2021-09-17] MEDS: buPROPion SR (12 HR) 150 mg Tablet PO (06:41)
[2021-09-17] MEDS: remdesivir 100 MG in sodium chloride 0.9% (100 ml) 80 ML IV (06:41)
[2021-09-17 07:15] LABS: Glucose Point of Care 114 mg/dL (70-110)
[2021-09-17 07:15] LABS: Glucose Point of Care 116 mg/dL (70-110)
[2021-09-17] MEDS: famotidine 20 mg Tablet PO ×2 (09:22→16:44)
[2021-09-17] MEDS: allopurinol 300 mg Tablet 150 MG PO ×2 (09:23→16:44)
--- NOTE | 2021-09-17 12:16 | P.PN_ITS ---
Subjective Subjective: Interval history: Seen this AM. No acute events overnight. COVID PCR positive. on 7L NC this AM. Vitals/I&O/Wt Last Vital Signs Temp 98.2 F 09/17/21 12:00 Pulse 64 09/17/21 12:00 Resp 16 09/17/21 12:00 BP 120/72 09/17/21 12:00 Pulse Ox 95 09/17/21 12:00 09/16/21 09/17/21 09/17/21 22:59 06:59 14:59 Intake Total 370 / 770 340 / 340 Output Total 675 / 1025 Balance 370 / 420 -675 / -255 340 / 340 Weight last 48 hrs Weight 118.841 kg Physical Exam Narrative: EXAM NARRATIVE: Sitting in recliner Saturating well on 7 L cannula No active rhonchi or wheezing Productive cough brown-yellow sputum Obese rounded abdomen, soft, nontender abdomen, visceral obesity No LE edema. EOMI Nonfocal neuro exam Data : 09/17/21 02:11 09/17/21 02:11 Micro: Microbiology 09/15/21 06:50 Blood Culture - Preliminary Blood NEGATIVE TO DATE 09/15/21 06:10 Blood Culture - Preliminary Blood NEGATIVE TO DATE A&P Assessment and plan (1) Pneumonia due to COVID-19 virus: Patient initially had symptom onset around the sixth, tested positive at outside laboratory on the eighth. Remdesivir, dexamethasone initiated For any worsening and continued inflammatory marker elevation consider baricitinib or Actemra Pulmonary toilet Incentive spirometry Prone is much as possible Repeat CRP tomorrow Check procalcitonin Doxycycline p.o. empirically Blood culture has been done Sputum culture Status: Acute Additional A&P Information #Hypoxia related to COVID-19 without respiratory failure No signs of conversational dyspnea Currently on 7L nasal cannula Continue dexamethasone and remdesivir. Will add baricitinib today. Plan to discharge him on Saturday if he stays clinically stable. If deteriorates, will keep patient and escalate O2 therapy as required. New diagnosis of type 2 diabetes. HbA1c 6.7 start Lantus 10 units along with sliding scale and consistent carb diet. At discharge, will transition to oral agent. Glucose higher 2/2 to dexamethasone use as well. WIll need close follow up with PCP for management of diabetes. Attestations Medical Necessity Statement*: COVID positive. Requiring higher level O2. Requires continued inpatient care. Coding Level of Care Code Acute Mailing Machine Helper for g Fwd Diagnoses Pneumonia due to COVID-19 virus U07.1; J12.82
[2021-09-17 12:27] LABS: Glucose Point of Care 159 mg/dL (70-110)
[2021-09-17] MEDS: ipratropium-albuterol 3 mL Neb INHALATION (13:05)
--- NOTE | 2021-09-17 14:16 | XRR_ITS ---
PROCEDURE INFORMATION: Exam: XR Chest Exam date and time: 09/17/2021 2:16 PM Age: 45 years old Clinical indication: Cough and shortness of breath; Additional info: Hypoxia TECHNIQUE: Imaging protocol: XR of the chest. Views: 1 view. COMPARISON: CR XR chest 1V portable [id number] 09/15/2021 6:23 AM FINDINGS: Lungs: Low lung volumes seen. Mild nonspecific interstitial densities are present in both lungs Pleural spaces: Unremarkable. No pleural effusion. No pneumothorax. Heart/Mediastinum: Unremarkable. No cardiomegaly. Bones/joints: Unremarkable. XR/XR chest 1V portable [id number] IMPRESSION: 1. Low lung volumes 2. Nonspecific interstitial densities in both lungs 3. Otherwise No acute findings.
[2021-09-17 14:30] LABS: ABG PCO2 37.7 mmHg (35-45); ABG PH Result 7.45 (7.35-7.45); Alveolar-Arterial Oxygen Gradi 6.9 mmHg (5-10); Arterial Blood Gas Hematocrit 45.2 % (42-52); Base Excess ABG 2.3 mmol/L (-2.0-2.0); Blood Gas Sample Type Arterial; Carboxyhemoglobin 0.7 %THgb (0.4-20.1); HCO3 ABG 26.3 mmol/L (22-26); HGB O2 Sat 86.9 % (95-100); Ionized Calcium Level - ABG 1.2 mmol/L (1.1-1.4); Methemoglobin 0.9 % (0.4-1.5); Oxygen Device NC; Oxygen Saturation ABG 88.3; PO2 ABG 51.4 mmHg (80.0-100.0); Total Hemoglobin 14.7 g/dL (14-18)
[2021-09-17 14:31] LABS: Blood Gas Sample Site Brachial, right
[2021-09-17 15:11] LABS: D Dimer 1.38 ug/mIFEU (0-0.59)
[2021-09-17] MEDS: enoxaparin 40 mg/0.4 mL Syringe SUBCUT (16:44)
[2021-09-17 17:30] LABS: Glucose Point of Care 142 mg/dL (70-110)
[2021-09-17] MEDS: budesonide 0.5 mg/2 mL Neb INHALATION (20:15)
--- NOTE | 2021-09-17 20:30 | PC.RESP ---
Patients Heated High Flow did not have humidity going. It was all hooked up but was not turned on. I turned it on and made sure patient could feel it and it was up to temp.
[2021-09-17] MEDS: insulin glargine 100 units/1 mL 10 UNIT SUBCUT (20:37)
[2021-09-17 20:45] LABS: Glucose Point of Care 163 mg/dL (70-110)
[2021-09-17] MEDS: insulin lispro 100 unit/1 mL SUBCUT (23:03)
[2021-09-18] VITALS (16 sets, daily range): BP systolic 102–126; BP diastolic 68–81; PULSE 66–82; RESP 16–19; TEMP 36.6–36.9; O2SAT 89–93
[2021-09-18 03:41] LABS: ABG PCO2 39.4 mmHg (35-45); ABG PH Result 7.47 (7.35-7.45); Arterial Blood Gas Hematocrit 42.6 % (42-52); Base Excess ABG 4.4 mmol/L (-2.0-2.0); Blood Gas Allen Test Pos; Blood Gas Sample Site Radial, left; Blood Gas Sample Type Arterial; HCO3 ABG 28.4 mmol/L (22-26); Oxygen Device HAG; PO2 ABG 48.5 mmHg (80.0-100.0)
[2021-09-18] MEDS: buPROPion SR (12 HR) 150 mg Tablet PO (05:09)
[2021-09-18] MEDS: remdesivir 100 MG in sodium chloride 0.9% (100 ml) 80 ML IV (05:10)
[2021-09-18 05:42] LABS: Basophils % 0.2 %; Hematocrit 41.8 % (42.0-52.0); Lymphocytes # 2.3 10^3/uL (0.8-4.8); Mean Corpuscular HGB Conc 33.5 g/dL (30.0-36.0); Mean Corpuscular Hemoglobin 28.1 pg (28.0-34.0); Mean Corpuscular Volume 83.9 fl (80-94); Mean Platelet Volume 9.7 fL (7.4-10.4); Neutrophils # 9.38 10^3/uL (1.8-7.7); Neutrophils % 72.9 %; Nucleated Red Blood Cells % 0 %; Platelet Count 353 10^3/cmm (130-400); Red Blood Count 4.98 10^6/uL (4.1-5.3); Red Cell Distribution Width 13.9 % (12.1-15.1); White Blood Count 12.9 10^3/uL (4.0-10.0)
[2021-09-18 06:01] LABS: Anion Gap 19.8 (5-19); Blood Urea Nitrogen 23 mg/dL (6-20); Calcium 8.7 mg/dL (8.5-10.5); Carbon Dioxide 24 mmol/L (22-29); Chloride 102 mmol/L (98-107); Glomerular Filtration Rate 90.8 mL/min (90-130); Glucose 117 mg/dL (65-115); Magnesium 2.6 mg/dL (1.7-2.3); Osmolality Calculated 299 mOsm/kg (285-295); Potassium 3.8 mmol/L (3.5-5.1); Sodium 142 mmol/L (136-145)
[2021-09-18 06:08] LABS: C Reactive Protein 61.9 mg/L (0.0-4.9)
[2021-09-18 06:44] LABS: Glucose Point of Care 112 mg/dL (70-110)
--- NOTE | 2021-09-18 07:25 | CT_ITS ---
WS: [id number] CTA OF THE CHEST WITH PULMONARY EMBOLISM PROTOCOL TECHNIQUE: High-resolution contrast enhanced CTA of the chest with coronal and sagittal reformatted i mages with pulmonary embolism protocol. MIP images are also reviewed. CLINICAL INFORMATION: hypoxia worsening COMPARISON: None. DLP: 573.[address] scans at [facility] use at least one of these dose optimization techniques: automated e xposure control; mA and/or kV adjustment per patient size (includes targeted exams where dose is matc hed to clinical indication); or iterative reconstruction. FINDINGS: Exam somewhat limited due to body habitus with beam hardening artifact. Proximal main pulmonary arteries are normal. Normal segmental and subsegmental pulmonary arteries. No evidence of pulmonary embolus. Normal caliber thoracic aorta. Enlarged hilar lymph nodes likely reac tive. Enlarged anterior mediastinal, peribronchial, and subcarinal lymph nodes. Diffuse hazy groundglass infiltrates throughout both lungs compatible with COVID 19 pneumonia. No axi llary lymphadenopathy. Adrenal glands are normal. Tiny right adrenal adenoma. Low-attenuation lesion in the right hepatic lobe laterally likely hepatic cyst measuring 14 mm. Tiny esophageal hiatal herni a. CT/CT angio chest PE protcl [id number] IMPRESSION: 1. No evidence of pulmonary embolus. 2. Diffuse hazy bilateral groundglass infiltrates compatible with COVID19 pneu monia. 3. Reactive mediastinal and hilar lymph nodes. 4. No pleural fluid or focal consolidation.
[2021-09-18] MEDS: dexamethasone 10 mg/mL INJ 6 MG IVP (07:39)
[2021-09-18] MEDS: iohexol 350 mg/mL 100 mL Btl IV (08:44)
[2021-09-18] MEDS: ascorbic acid 500 mg Tablet PO (09:01)
[2021-09-18] MEDS: zinc gluconate 50 mg Tablet PO (09:01)
[2021-09-18] MEDS: famotidine 20 mg Tablet PO ×2 (09:01→16:59)
[2021-09-18] MEDS: allopurinol 300 mg Tablet 150 MG PO ×2 (09:01→16:59)
--- NOTE | 2021-09-18 14:52 | PM.PN ---
Subjective Subjective: Interval history: This morning patient was on heated high flow I escalated his oxygen requirement to 80% and 55 L which improved his oxygen saturation to 90 to 91% Experiencing dry cough No diarrhea Loss of appetite He tried to prone himself last night Vitals/I&O/Wt Last Vital Signs Temp 98.0 F 09/18/21 11:24 Pulse 77 09/18/21 11:24 Resp 18 09/18/21 11:24 BP 110/73 09/18/21 11:24 Pulse Ox 89 L 09/18/21 11:24 09/17/21 09/18/21 09/18/21 22:59 06:59 14:59 Intake Total 240 / 700 100 / 800 420 / 420 Output Total 1050 / 1050 Balance 240 / 700 -950 / -250 420 / 420 Physical Exam Narrative: EXAM NARRATIVE: sitting comfortably in his bed No audible stridor or wheezing Dry cough Clinically does not look fluid overloaded On heated high flow No use of respiratory accessory muscles EOMI, PERRLA Nonfocal neuro exam Data : 09/18/21 05:29 09/18/21 05:29 A&P Assessment and plan (1) COVID-19: Status: Acute (2) Pneumonia due to COVID-19 virus: Status: Acute (3) Morbid obesity with BMI of 40.0-44.9, adult: Status: Acute (4) Family history of diabetes mellitus: Status: Acute (5) Elevated blood pressure reading: Status: Acute Additional A&P Information Hypoxemia related to COVID-19 On heated high flow 80%, 55 L Started baricitinib yesterday CTA ruled out pulmonary embolism No active use of respiratory accessory muscles Experiencing dry cough and anorexia Encourage p.o. intake and proning incentive spirometry and flutter valve Ambulation in the room, out of bed to chair Full code Cardiac diet In case of further worsening of his symptoms might transfer him to ICU, for type 2 diabetes I have started him on Lantus and sliding scale currently euglycemic Attestations Medical Necessity Statement*: Continue medical management Time Spent in Patient Care: less than 15 minutes Coding Level of Care Code Acute Outside Medical Sales Representative for g Fwd Diagnoses COVID-19 U07.1 Pneumonia due to COVID-19 virus U07.1; J12.82 Morbid obesity with BMI of 40.0-44.9, adult E66.01; Z68.41 Family history of diabetes mellitus Z83.3 Elevated blood pressure reading R03.0
[2021-09-18] MEDS: ipratropium-albuterol 3 mL Neb INHALATION ×2 (15:27→20:15)
[2021-09-18] MEDS: enoxaparin 40 mg/0.4 mL Syringe SUBCUT (16:59)
[2021-09-18 17:10] LABS: Glucose Point of Care 132 mg/dL (70-110)
[2021-09-18 17:26] LABS: Glucose Point of Care 137 mg/dL (70-110)
[2021-09-18] MEDS: budesonide 0.5 mg/2 mL Neb INHALATION (20:15)
[2021-09-18 20:31] LABS: Glucose Point of Care 127 mg/dL (70-110)
[2021-09-18] MEDS: insulin glargine 100 units/1 mL 10 UNIT SUBCUT (20:56)
--- NOTE | 2021-09-18 23:04 | PC.NURSE ---
Patient in bed /awake in bed watching TV. Denies pain or SOB. No needs voiced at this time.
[2021-09-19] VITALS (13 sets, daily range): BP systolic 117–125; BP diastolic 69–79; PULSE 72–87; RESP 16–22; TEMP 36.4–37; O2SAT 87–97
--- NOTE | 2021-09-19 02:08 | PC.NURSE ---
Patient in bed/sleeping. No s/s of pain or discomfort. No needs noted at this time.
[2021-09-19] MEDS: ipratropium-albuterol 3 mL Neb INHALATION ×4 (03:51→20:42)
[2021-09-19 04:07] LABS: ABG PCO2 38.4 mmHg (35-45); ABG PH Result 7.47 (7.35-7.45); Base Excess ABG 3.7 mmol/L (-2.0-2.0); Blood Gas Operator Identificat JB; Blood Gas Sample Site Radial, left; Blood Gas Sample Type Arterial; HCO3 ABG 27.6 mmol/L (22-26); Oxygen Device HAG; PO2 ABG 62.8 mmHg (80.0-100.0)
--- NOTE | 2021-09-19 04:41 | PC.NURSE ---
Patient in bed sleeping/ Upon entering room O2 sat 84-85%. Patient was woken up / NC in place/ with taking some deep breathes able to get O2 to 87-88%. Will notify RT to assess.
[2021-09-19 06:16] LABS: Anion Gap 17.9 (5-19); Blood Urea Nitrogen 23 mg/dL (6-20); C Reactive Protein 42.7 mg/L (0.0-4.9); Calcium 8.4 mg/dL (8.5-10.5); Carbon Dioxide 24 mmol/L (22-29); Chloride 106 mmol/L (98-107); Creatinine Clr Calc Pharmacy 115.6414; Glomerular Filtration Rate 80.4 mL/min (90-130); Glucose 111 mg/dL (65-115); Osmolality Calculated 302 mOsm/kg (285-295); Potassium 3.9 mmol/L (3.5-5.1); Sodium 144 mmol/L (136-145)
[2021-09-19] MEDS: remdesivir 100 MG in sodium chloride 0.9% (100 ml) 80 ML IV (06:27)
[2021-09-19] MEDS: buPROPion SR (12 HR) 150 mg Tablet PO (06:28)
[2021-09-19] MEDS: dexamethasone 10 mg/mL INJ 6 MG IVP (06:28)
[2021-09-19 06:49] LABS: Glucose Point of Care 138 mg/dL (70-110)
[2021-09-19] MEDS: ascorbic acid 500 mg Tablet PO (08:00)
[2021-09-19] MEDS: zinc gluconate 50 mg Tablet PO (08:00)
[2021-09-19] MEDS: famotidine 20 mg Tablet PO ×2 (08:00→17:21)
[2021-09-19] MEDS: allopurinol 300 mg Tablet 150 MG PO ×2 (08:01→17:21)
[2021-09-19] MEDS: budesonide 0.5 mg/2 mL Neb INHALATION ×2 (08:49→20:42)
[2021-09-19 12:19] LABS: Glucose Point of Care 140 mg/dL (70-110)
--- NOTE | 2021-09-19 14:42 | P.PN_ITS ---
Subjective Subjective: Interval history: Heated high flow 100%, 55 L PaO2 62, when entered the room he was proned, I increase his flow to 60 L which improved his O2 saturation to 92% Spoke with the as well, patient is stating that his night was calm and restful, he is feeling much better today in terms of his energy and appetite He is not feeling short of breath Is not anxious at all No active chest pain or abdominal pain I did speak with the respiratory therapist to have a low threshold to put him on BiPAP and transfer to ICU if needed today for worsening hypoxia Vitals/I&O/Wt Last Vital Signs Temp 98.5 F 09/19/21 12:00 Pulse 75 09/19/21 12:00 Resp 18 09/19/21 12:00 BP 125/70 09/19/21 12:00 Pulse Ox 95 09/19/21 12:00 09/18/21 09/19/21 09/19/21 22:59 06:59 14:59 Intake Total 360 / 780 460 / 460 Output Total 200 / 200 Balance 360 / 780 -200 / 580 460 / 460 Physical Exam Narrative: EXAM NARRATIVE: Patient was proned Heated high flow 100%, 60 L No acute respiratory distress No conversational dyspnea Very comfortable and calm Hemodynamically stable Afebrile Distended abdomen with obesity Lower extremity no edema Multiple skin tattoos EOMI, PERRLA Nonfocal neuro exam Bilateral breath sounds without adventitious sounds Data : 09/18/21 05:29 09/19/21 05:06 A&P Assessment and plan (1) COVID-19: Status: Acute (2) Pneumonia due to COVID-19 virus: Status: Acute (3) Hypoxia: Status: Acute Additional A&P Information Acute hypoxia COVID-19 Currently on heated high flow 100%, 60 L On baricitinib continue IV steroids and remdesivir, inflammatory markers trending down Closely monitor for now, low threshold to put him on BiPAP and transfer to ICU updated Patient today however clinically is not feeling worse, he in fact had peaceful night, no active diarrhea or fever CTA ruled out pulmonary embolism We will request venous Dopplers Consistent carbohydrate diet Full code DVT prophylaxis Lovenox For his type 2 diabetes currently he is on Lantus 10 units along sliding scale, currently euglycemic Attestations Medical Necessity Statement*: Continue medical management Time Spent in Patient Care: 16 - 35 minutes Coding Level of Care Code Acute Employment Agency Manager for [facility] Fwd Diagnoses COVID-19 U07.1 Pneumonia due to COVID-19 virus U07.1; J12.82 Hypoxia R09.02
[2021-09-19 16:52] LABS: Glucose Point of Care 134 mg/dL (70-110)
[2021-09-19] MEDS: enoxaparin 40 mg/0.4 mL Syringe SUBCUT (17:21)
[2021-09-19 21:25] LABS: Glucose Point of Care 165 mg/dL (70-110)
[2021-09-19] MEDS: insulin lispro 100 unit/1 mL SUBCUT (21:52)
[2021-09-19] MEDS: insulin glargine 100 units/1 mL 10 UNIT SUBCUT (21:52)
[2021-09-20] VITALS (10 sets, daily range): BP systolic 120–141; BP diastolic 74–84; PULSE 68–87; RESP 17–22; TEMP 36.5–36.9; O2SAT 87–94
[2021-09-20] MEDS: ipratropium-albuterol 3 mL Neb INHALATION ×4 (02:42→20:21)
[2021-09-20 04:24] LABS: ABG PCO2 33.2 mmHg (35-45); Arterial Blood Gas Hematocrit 42.2 % (42-52); Base Excess ABG 3.3 mmol/L (-2.0-2.0); Blood Gas Allen Test Pos; Blood Gas Sample Type Arterial; HCO3 ABG 26.1 mmol/L (22-26); PO2 ABG 55.1 mmHg (80.0-100.0)
[2021-09-20 04:25] LABS: Blood Gas Sample Site Radial, left; Oxygen Device HAG
[2021-09-20 05:42] LABS: Basophils # 0.1 10^3/uL (0.0-0.1); Basophils % 0.7 %; Eosinophils # 0.1 10^3/uL (0.0-0.8); Eosinophils % 0.3 %; Hematocrit 41.2 % (42.0-52.0); Hemoglobin 13.8 g/dL (11.7-16.6); Lymphocytes # 2.8 10^3/uL (0.8-4.8); Lymphocytes % 19.5 %; Mean Corpuscular HGB Conc 33.5 g/dL (30.0-36.0); Mean Corpuscular Hemoglobin 28.5 pg (28.0-34.0); Mean Corpuscular Volume 84.9 fl (80-94); Mean Platelet Volume 10.1 fL (7.4-10.4); Monocytes # 1.2 10^3/uL (0.2-0.9); Monocytes % 8.3 %; Neutrophils % 66.6 %; Nucleated Red Blood Cells % 0 %; Platelet Count 458 10^3/cmm (130-400); Red Blood Count 4.85 10^6/uL (4.1-5.3); Red Cell Distribution Width 14.2 % (12.1-15.1); White Blood Count 14.6 10^3/uL (4.0-10.0)
[2021-09-20 05:58] LABS: Blood Urea Nitrogen 20 mg/dL (6-20); Calcium 8.5 mg/dL (8.5-10.5); Carbon Dioxide 23 mmol/L (22-29); Chloride 102 mmol/L (98-107); Glomerular Filtration Rate 90.8 mL/min (90-130); Glucose 108 mg/dL (65-115); Osmolality Calculated 291 mOsm/kg (285-295); Sodium 139 mmol/L (136-145)
[2021-09-20] MEDS: dexamethasone 10 mg/mL INJ 6 MG IVP (06:25)
[2021-09-20] MEDS: buPROPion SR (12 HR) 150 mg Tablet PO (06:25)
[2021-09-20 06:54] LABS: Glucose Point of Care 113 mg/dL (70-110)
[2021-09-20] MEDS: zinc gluconate 50 mg Tablet PO (07:29)
[2021-09-20] MEDS: allopurinol 300 mg Tablet 150 MG PO ×2 (07:29→16:58)
[2021-09-20] MEDS: ascorbic acid 500 mg Tablet PO (07:29)
[2021-09-20] MEDS: famotidine 20 mg Tablet PO ×2 (07:29→16:58)
[2021-09-20] MEDS: piperacillin-tazobactam 3.375 GM in sodium chloride 0.9% (plus) 50 ML IV ×2 (09:01→16:59)
[2021-09-20] MEDS: budesonide 0.5 mg/2 mL Neb INHALATION ×2 (09:19→20:21)
[2021-09-20 11:13] LABS: Glucose Point of Care 141 mg/dL (70-110)
[2021-09-20] MEDS: insulin lispro 100 unit/1 mL SUBCUT ×3 (11:46→20:41)
--- NOTE | 2021-09-20 11:51 | P.PN_ITS ---
Subjective Subjective: Interval history: Flow 55 L, 95% No overnight events Required BiPAP to decrease work of breathing Afebrile Euglycemic Vitals/I&O/Wt Last Vital Signs Temp 98.2 F 09/20/21 11:06 Pulse 87 09/20/21 11:06 Resp 18 09/20/21 11:06 BP 141/84 09/20/21 11:06 Pulse Ox 90 09/20/21 11:06 09/19/21 09/20/21 09/20/21 22:59 06:59 14:59 Intake Total 480 / 1420 200 / 1620 Output Total 750 / 750 760 / 1510 300 / 300 Balance -270 / 670 -560 / 110 -300 / -300 Physical Exam Narrative: EXAM NARRATIVE: Heated high flow 55 L, 95% Mild rhonchi at the base of the lungs Distended abdomen visceral obesity EOMI, PERRLA Nonfocal exam In good spirits S1, S2 Euvolemic Data : 09/20/21 05:00 09/20/21 05:00 Micro: Microbiology 09/15/21 06:50 Blood Culture - Final Blood NO GROWTH AFTER 5 DAYS 09/15/21 06:10 Blood Culture - Final Blood NO GROWTH AFTER 5 DAYS A&P Assessment and plan (1) Hypoxia: Status: Acute (2) COVID-19: Status: Acute (3) Pneumonia due to COVID-19 virus: Status: Acute (4) Morbid obesity with BMI of 40.0-44.9, adult: Status: Acute (5) Family history of diabetes mellitus: Status: Acute (6) Diabetes: Status: Acute Additional A&P Information Hypoxia related to COVID-19 CTA ruled out pulmonary embolism Maintain heated high flow regimen with 95% 55 L Low threshold to use BiPAP and transfer to ICU For now clinically doing well Endorsing lack of appetite Clinically euvolemic Afebrile On baricitinib Status post remdesivir, continue IV steroids Out of bed to chair Encourage proning Full code Consistent carb diet Attestations Medical Necessity Statement*: Continue medical management Time Spent in Patient Care: less than 15 minutes Coding Level of Care Code Acute Geographic Area Intelligence Officer for [facility] Fwd Diagnoses Hypoxia R09.02 COVID-19 U07.1 Pneumonia due to COVID-19 virus U07.1; J12.82 Morbid obesity with BMI of 40.0-44.9, adult E66.01; Z68.41 Family history of diabetes mellitus Z83.3 Diabetes E11.9
[2021-09-20] MEDS: saline nasal spray 44mL Btl 1 SPRAY NASAL (12:07)
[2021-09-20 16:48] LABS: Glucose Point of Care 156 mg/dL (70-110)
[2021-09-20] MEDS: enoxaparin 40 mg/0.4 mL Syringe SUBCUT (17:00)
[2021-09-20 20:26] LABS: Glucose Point of Care 174 mg/dL (70-110)
[2021-09-20] MEDS: insulin glargine 100 units/1 mL 10 UNIT SUBCUT (20:41)
[2021-09-21] VITALS (13 sets, daily range): BP systolic 105–129; BP diastolic 67–78; PULSE 65–84; RESP 16–20; TEMP 36.6–37.2; O2SAT 88–94
[2021-09-21] MEDS: piperacillin-tazobactam 3.375 GM in sodium chloride 0.9% (plus) 50 ML IV ×3 (01:01→15:48)
[2021-09-21] MEDS: ipratropium-albuterol 3 mL Neb INHALATION ×2 (02:28→08:03)
[2021-09-21 04:05] LABS: ABG PCO2 34.9 mmHg (35-45); Arterial Blood Gas Hematocrit 42.9 % (42-52); Base Excess ABG 3.8 mmol/L (-2.0-2.0); Blood Gas Allen Test Pos; Blood Gas Sample Site Radial, left; Blood Gas Sample Type Arterial; HCO3 ABG 26.9 mmol/L (22-26); Oxygen Device HAG; PO2 ABG 52.3 mmHg (80.0-100.0)
[2021-09-21 05:56] LABS: Basophils # 0.1 10^3/uL (0.0-0.1); Basophils % 0.8 %; Eosinophils # 0.2 10^3/uL (0.0-0.8); Eosinophils % 1.7 %; Hematocrit 40.3 % (42.0-52.0); Hemoglobin 13.2 g/dL (11.7-16.6); Lymphocytes # 2.9 10^3/uL (0.8-4.8); Lymphocytes % 20.9 %; Mean Corpuscular HGB Conc 32.8 g/dL (30.0-36.0); Mean Corpuscular Hemoglobin 28.1 pg (28.0-34.0); Mean Corpuscular Volume 85.9 fl (80-94); Mean Platelet Volume 10.2 fL (7.4-10.4); Monocytes # 1.2 10^3/uL (0.2-0.9); Monocytes % 8.5 %; Neutrophils # 8.34 10^3/uL (1.8-7.7); Neutrophils % 60.2 %; Nucleated Red Blood Cells % 0 %; Platelet Count 467 10^3/cmm (130-400); Red Blood Count 4.69 10^6/uL (4.1-5.3); Red Cell Distribution Width 14.1 % (12.1-15.1); White Blood Count 13.8 10^3/uL (4.0-10.0)
[2021-09-21 06:07] LABS: Blood Urea Nitrogen 16 mg/dL (6-20); Calcium 8.3 mg/dL (8.5-10.5); Carbon Dioxide 22 mmol/L (22-29); Chloride 103 mmol/L (98-107); Glomerular Filtration Rate 90.8 mL/min (90-130); Glucose 100 mg/dL (65-115); Osmolality Calculated 293 mOsm/kg (285-295); Sodium 141 mmol/L (136-145)
[2021-09-21] MEDS: buPROPion SR (12 HR) 150 mg Tablet PO (06:10)
[2021-09-21] MEDS: dexamethasone 10 mg/mL INJ 6 MG IVP (06:10)
[2021-09-21 06:39] LABS: Slide Review Slide Review Perform
[2021-09-21 07:31] LABS: Glucose Point of Care 106 mg/dL (70-110)
[2021-09-21] MEDS: budesonide 0.5 mg/2 mL Neb INHALATION ×2 (08:03→20:06)
[2021-09-21] MEDS: allopurinol 300 mg Tablet 150 MG PO ×2 (08:52→17:04)
[2021-09-21] MEDS: famotidine 20 mg Tablet PO ×2 (08:52→17:05)
[2021-09-21] MEDS: ascorbic acid 500 mg Tablet PO (08:52)
[2021-09-21] MEDS: zinc gluconate 50 mg Tablet PO (08:52)
--- NOTE | 2021-09-21 09:24 | PM.PN ---
Subjective Subjective: Interval history: Patient was seen and examined this morning, patient is enthusiastic and motivated to get better quicker, he still requiring 90% heated high flow 50 L, there was no pulse ox, requested nurse to get a new finger pulse ox Patient is stating that he is feeling better, his appetite is okay, no diarrhea, no fever rigors or chills ABG showed PO2 52 no significant worsening since last 2 to 3 days CTA rule out PE Vitals/I&O/Wt Last Vital Signs Temp 98.4 F 09/21/21 07:10 Pulse 84 09/21/21 08:03 Resp 20 H 09/21/21 08:03 BP 113/70 09/21/21 07:10 Pulse Ox 93 09/21/21 08:03 09/20/21 09/21/21 09/21/21 22:59 06:59 14:59 Intake Total 530 / 580 290 / 870 240 / 240 Output Total 1050 / 1350 Balance 530 / 280 -760 / -480 240 / 240 Physical Exam Narrative: EXAM NARRATIVE: Patient was standing at the bedside, no active shortness of breath or chest pain Clinically euvolemic S1, S2 Diminished airflow entry no active crackles or wheezing noted Heated high flow 50 L 90% Hemodynamically stable In good spirits Abdominal obesity EOMI, PERRLA Nonfocal exam Data : 09/21/21 05:17 09/21/21 05:17 Micro: Microbiology 09/15/21 06:50 Blood Culture - Final Blood NO GROWTH AFTER 5 DAYS 09/15/21 06:10 Blood Culture - Final Blood NO GROWTH AFTER 5 DAYS A&P Assessment and plan (1) Diabetes: Status: Acute (2) Hypoxia: Status: Acute (3) Acute respiratory failure with hypoxia: Status: Acute (4) COVID-19: Status: Acute (5) Morbid obesity with BMI of 40.0-44.9, adult: Status: Acute Additional A&P Information Acute hypoxia Continue baricitinib, status post remdesivir, continue IV steroids Heated high flow Patient has been proning himself, walking, ambulating in his room Plan to wean him off heated high flow currently requiring 90%, 50 L CTA rule out pulmonary embolism Afebrile Type 2 diabetes: Euglycemic, added Lantus, new diagnosis of diabetes hemoglobin A1c 6.7 Continue consistent carb diet Full code DVT prophylaxis on board Inflammatory markers are trending down, clinically he is improving however ABG shows persistent hypoxia which has not significantly improved was updated Family is not vaccinated Attestations Medical Necessity Statement*: Continue medical management Time Spent in Patient Care: less than 15 minutes Coding Level of Care Code Acute Ore Crushing Dust Collector for [facility] Fwd Diagnoses Diabetes E11.9 Hypoxia R09.02 Acute respiratory failure with hypoxia J96.01 COVID-19 U07.1 Morbid obesity with BMI of 40.0-44.9, adult E66.01; Z68.41
[2021-09-21 11:05] LABS: Glucose Point of Care 160 mg/dL (70-110)
[2021-09-21] MEDS: insulin lispro 100 unit/1 mL SUBCUT ×2 (13:15→17:04)
[2021-09-21] MEDS: enoxaparin 40 mg/0.4 mL Syringe SUBCUT (17:05)
[2021-09-21 17:10] LABS: Glucose Point of Care 153 mg/dL (70-110)
[2021-09-21 20:12] LABS: Glucose Point of Care 113 mg/dL (70-110)
[2021-09-21] MEDS: insulin glargine 100 units/1 mL 10 UNIT SUBCUT (22:09)
[2021-09-22] VITALS (14 sets, daily range): BP systolic 104–122; BP diastolic 61–77; PULSE 54–98; RESP 16–20; TEMP 36.3–37; O2SAT 90–100
[2021-09-22] MEDS: piperacillin-tazobactam 3.375 GM in sodium chloride 0.9% (plus) 50 ML IV ×3 (00:11→17:03)
[2021-09-22 03:53] LABS: ABG PCO2 40.2 mmHg (35-45); ABG PH Result 7.45 (7.35-7.45); Arterial Blood Gas Hematocrit 43.3 % (42-52); Base Excess ABG 3.7 mmol/L (-2.0-2.0); Blood Gas Allen Test Pos; Blood Gas Sample Site Radial, left; Blood Gas Sample Type Arterial; Oxygen Device HAG; PO2 ABG 74.3 mmHg (80.0-100.0)
[2021-09-22 05:34] LABS: Blood Urea Nitrogen 18 mg/dL (6-20); Calcium 8.7 mg/dL (8.5-10.5); Carbon Dioxide 23 mmol/L (22-29); Chloride 103 mmol/L (98-107); Creatinine Clr Calc Pharmacy 115.6414; Glomerular Filtration Rate 80.4 mL/min (90-130); Glucose 108 mg/dL (65-115); Osmolality Calculated 292 mOsm/kg (285-295); Sodium 140 mmol/L (136-145)
[2021-09-22] MEDS: dexamethasone 10 mg/mL INJ 6 MG IVP (06:03)
[2021-09-22] MEDS: buPROPion SR (12 HR) 150 mg Tablet PO (06:03)
[2021-09-22 06:31] LABS: Glucose Point of Care 128 mg/dL (70-110)
[2021-09-22] MEDS: ascorbic acid 500 mg Tablet PO (08:14)
[2021-09-22] MEDS: zinc gluconate 50 mg Tablet PO (08:14)
[2021-09-22] MEDS: famotidine 20 mg Tablet PO ×2 (08:14→17:05)
[2021-09-22] MEDS: allopurinol 300 mg Tablet 150 MG PO ×2 (08:14→17:04)
[2021-09-22] MEDS: budesonide 0.5 mg/2 mL Neb INHALATION ×2 (08:14→20:59)
--- NOTE | 2021-09-22 11:35 | P.PN_ITS ---
Subjective Subjective: Interval history: Seen this AM. Now on 50% FIO2 and 45 L flow. He states he feels great . Vitals/I&O/Wt Last Vital Signs Temp 97.4 F L 09/22/21 08:00 Pulse 74 09/22/21 08:37 Resp 16 09/22/21 08:37 BP 112/68 09/22/21 08:00 Pulse Ox 94 09/22/21 08:37 09/21/21 09/22/21 09/22/21 22:59 06:59 14:59 Intake Total 50 / 580 50 / 630 120 / 120 Output Total 200 / 200 400 / 400 Balance 50 / 580 -150 / 430 -280 / -280 Physical Exam Narrative: EXAM NARRATIVE: Appears very energetic, no active shortness of breath or chest pain Clinically euvolemic S1, S2 Diminished airflow entry no active crackles or wheezing noted Heated high flow 45 L 50% Hemodynamically stable In good spirits Abdominal obesity EOMI, PERRLA Nonfocal exam Data : 09/21/21 05:17 09/22/21 05:00 A&P Assessment and plan (1) Diabetes: Status: Acute (2) Hypoxia: Status: Acute (3) Acute respiratory failure with hypoxia: Status: Acute (4) COVID-19: Status: Acute (5) Morbid obesity with BMI of 40.0-44.9, adult: Status: Acute Additional A&P Information #Acute hypoxia 2/2 COVID 19 Continue baricitinib, status post remdesivir, continue IV steroids Heated high flow and wean off to NC when able. Patient has been proning himself, walking, ambulating in his room CTA rule out pulmonary embolism Afebrile Type 2 diabetes: Euglycemic, continue Lantus, new diagnosis of diabetes hemoglobin A1c 6.7 Continue consistent carb diet Full code DVT prophylaxis on board Inflammatory markers are trending down, clinically he is improving was updated Family is not vaccinated Attestations Medical Necessity Statement*: > 24-48 hours Coding Level of Care Code Acute Configuration Management Advisor for g Fwd Diagnoses Diabetes E11.9 Hypoxia R09.02 Acute respiratory failure with hypoxia J96.01 COVID-19 U07.1 Morbid obesity with BMI of 40.0-44.9, adult E66.01; Z68.41
[2021-09-22 11:39] LABS: Glucose Point of Care 148 mg/dL (70-110)
[2021-09-22] MEDS: insulin lispro 100 unit/1 mL SUBCUT ×3 (13:13→21:28)
[2021-09-22] MEDS: enoxaparin 40 mg/0.4 mL Syringe SUBCUT (17:04)
[2021-09-22 17:27] LABS: Glucose Point of Care 170 mg/dL (70-110)
[2021-09-22] MEDS: insulin glargine 100 units/1 mL 10 UNIT SUBCUT (21:28)
[2021-09-23] VITALS (10 sets, daily range): BP systolic 106–121; BP diastolic 57–83; PULSE 61–87; RESP 16–20; TEMP 36.5–37.1; O2SAT 87–96
[2021-09-23] MEDS: piperacillin-tazobactam 3.375 GM in sodium chloride 0.9% (plus) 50 ML IV ×2 (00:32→07:55)
[2021-09-23 06:08] LABS: Basophils # 0.1 10^3/uL (0.0-0.1); Basophils % 0.8 %; Eosinophils # 0.2 10^3/uL (0.0-0.8); Eosinophils % 1.3 %; Hemoglobin 13.3 g/dL (11.7-16.6); Lymphocytes # 3.4 10^3/uL (0.8-4.8); Lymphocytes % 19.8 %; Mean Corpuscular HGB Conc 33.3 g/dL (30.0-36.0); Mean Corpuscular Hemoglobin 28.9 pg (28.0-34.0); Mean Corpuscular Volume 86.8 fl (80-94); Mean Platelet Volume 10.1 fL (7.4-10.4); Monocytes # 1.4 10^3/uL (0.2-0.9); Monocytes % 8.1 %; Neutrophils % 57.7 %; Nucleated Red Blood Cells % 0 %; Platelet Count 574 10^3/cmm (130-400); Red Blood Count 4.61 10^6/uL (4.1-5.3); Red Cell Distribution Width 14.3 % (12.1-15.1)
[2021-09-23 06:22] LABS: Anion Gap 14.6 (5-19); Blood Urea Nitrogen 20 mg/dL (6-20); Calcium 8.6 mg/dL (8.5-10.5); Carbon Dioxide 25 mmol/L (22-29); Chloride 104 mmol/L (98-107); Creatinine Clr Calc Pharmacy 115.6414; Glomerular Filtration Rate 80.4 mL/min (90-130); Glucose 109 mg/dL (65-115); Magnesium 2.2 mg/dL (1.7-2.3); Osmolality Calculated 293 mOsm/kg (285-295); Potassium 3.6 mmol/L (3.5-5.1); Sodium 140 mmol/L (136-145)
[2021-09-23 06:25] LABS: Slide Review Slide Review Perform
[2021-09-23] MEDS: dexamethasone 10 mg/mL INJ 6 MG IVP (06:31)
[2021-09-23] MEDS: buPROPion SR (12 HR) 150 mg Tablet PO (06:31)
--- NOTE | 2021-09-23 07:47 | XRR_ITS ---
PROCEDURE INFORMATION: Exam: XR Chest Exam date and time: 09/23/2021 7:47 AM Age: 45 years old Clinical indication: Shortness of breath; Additional info: Follow up TECHNIQUE: Imaging protocol: XR of the chest. Views: 1 view. Total images: 1 COMPARISON: CR (CHEST, ) 09/17/2021 2:45 PM FINDINGS: Lungs: Bilateral pulmonary opacities are again noted and have shown slight interval worsening from the prior exam. Pleural spaces: Unremarkable. No pleural effusion. No pneumothorax. Heart/Mediastinum: Heart size is stable when compared to the prior exam. Bones/joints: Osseous structures are unchanged from the prior exam. XR/XR chest 1V portable [id number] IMPRESSION: Bilateral pulmonary opacities are again noted and have shown slight interval worsening from the prior exam.
[2021-09-23] MEDS: allopurinol 300 mg Tablet 150 MG PO (07:55)
[2021-09-23] MEDS: zinc gluconate 50 mg Tablet PO (07:55)
[2021-09-23] MEDS: ascorbic acid 500 mg Tablet PO (07:56)
[2021-09-23] MEDS: famotidine 20 mg Tablet PO (07:56)
--- NOTE | 2021-09-23 08:06 | PC.NURSE ---
radiology in room completing chest x-ray, patient is alert and oriented, dry cough noted, denies pain or needs at this time, oxygen at 3L NC, oxygen saturation 92% continuous pulse ox.
[2021-09-23 08:11] LABS: Glucose Point of Care 101 mg/dL (70-110)
[2021-09-23 08:11] LABS: Glucose Point of Care 168 mg/dL (70-110)
[2021-09-23] MEDS: budesonide 0.5 mg/2 mL Neb INHALATION (08:40)
[2021-09-23] MEDS: amoxicillin-clav 875-125 mg Tablet 1 TAB PO (11:41)
[2021-09-23 12:37] LABS: Glucose Point of Care 130 mg/dL (70-110)
--- NOTE | 2021-09-23 13:33 | PM.DCS ---
Discharge Providers Date of Admission: 09/15/21 08:55 Date of Discharge: September 23, 2021 Attending Provider at Admission: Onur Segundo MD Attending Provider at Discharge: Nicky Davis MD Primary Care Provider: Rayo Lin MD Diagnoses at Discharge Discharge Diagnosis (1) Diabetes: Status: Acute (2) Hypoxia: Status: Acute (3) Acute respiratory failure with hypoxia: Status: Resolved (4) COVID-19: Status: Acute (5) Morbid obesity with BMI of 40.0-44.9, adult: Status: Acute Reason for Visit Reason for Visit: Covid +\N\V SOB Hospital Course Hospital Course HPI as per Dr. Segundo Jasson Hess is a 45 year old male who presents with history of illness since the sixth. It started with cough and nasal congestion, culminating in significant shortness of breath, cough with some posttussive emesis, diaphoresis. He denies any chest pain, or hemoptysis. He reports he has not been able to eat or drink well since getting illness. Family members have been ill with similar symptoms. He is not vaccinated. He does feel less short of breath on oxygen. Course Admitted for COVID-19 pneumonia. Received remdesivir IV steroids and baricitinib during hospital stay. He was also self proning. Oxygen requirements came down and he was discharged home. Did get diagnosed with diabetes during stay. He was started on Metformin and to follow-up with primary care physician. Physical Exam Narrative: EXAM NARRATIVE: Appears very energetic, no active shortness of breath or chest pain Clinically euvolemic S1, S2 Diminished airflow entry no active crackles or wheezing noted Hemodynamically stable In good spirits Abdominal obesity EOMI, PERRLA Nonfocal exam Discharge Data Data Completed and Pending: Completed Studies During Hospitalization Category Date Time Status CT angio chest PE protcl [id number] Rout ine Cat Scan 09/18/21 07:25 Completed XR chest 1V julianne ble [id number] Stat Exams 09/15/21 05:21 Completed XR chest 1V julianne ble [id number] Stat Exams 09/17/21 14:16 Completed XR chest 1V julianne ble [id number] Urgent Exams 09/23/21 07:47 Completed Pending at discharge Category Date Time Status Sputum Culture an d Gram Stain Routi ne Lab 09/15/21 17:35 Uncollected Labs from last 24 hours 12/09/23/21 09/23/21 12:09 06:36 05:20 WBC RBC Hgb Hct MCV MCH MCHC RDW Plt Count MPV Neut % (Auto) Lymph % (Auto) [place] % (Auto) Eos % (Auto) Baso % (Auto) Neut # (Auto) Lymph # (Auto) [place] # (Auto) Eos # (Auto) Baso # (Auto) Nucleated RBC % (a uto) Nucleated RBCs # Sodium 140 Potassium 3.6 Chloride 104 Carbon Dioxide 25 Anion Gap 14.6 BUN 20 Creatinine 1.0 GFR Calculation 80.4 L Glucose 109 POC Glucose 130 H 101 Calculated Osmolal ity 293 Calcium 8.6 Magnesium 2.2 09/23/21 09/22/21 09/22/21 05:20 21:02 17:22 WBC 17.0 H RBC 4.61 Hgb 13.3 Hct 40.0 L MCV 86.8 MCH 28.9 MCHC 33.3 RDW 14.3 Plt Count 574 H MPV 10.1 Neut % (Auto) 57.7 Lymph % (Auto) 19.8 [place] % (Auto) 8.1 Eos % (Auto) 1.3 Baso % (Auto) 0.8 Neut # (Auto) 9.80 H Lymph # (Auto) 3.4 [place] # (Auto) 1.4 H Eos # (Auto) 0.2 Baso # (Auto) 0.1 Nucleated RBC % (a uto) 0 Nucleated RBCs # 0.0 Sodium Potassium Chloride Carbon Dioxide Anion Gap BUN Creatinine GFR Calculation Glucose POC Glucose 168 H 170 H Calculated Osmolal ity Calcium Magnesium Vitals: Last Vital Signs Temp 97.7 F 09/23/21 12:00 Pulse 68 09/23/21 12:00 Resp 18 09/23/21 12:00 BP 117/83 09/23/21 12:00 Pulse Ox 94 09/23/21 12:00 Discharge Plan Discharge Patient Disposition: Home Condition: Stable Prescriptions: Continued ibuprofen 200 mg Tablet 400 mg PO Q4H PRN (Reason: Pain) RF: 0 No Action metformin 500 mg tablet 500 mg PO BID 30 Days Qty: 60 RF: 5 Ventolin HFA 90 mcg/actuation HFA aerosol inhaler 2 puff inhalation Q4H.RESPIRATORY PRN (Reason: Shortness Of Breath) 14 Days Qty: 8 RF: 0 allopurinol 300 mg tablet 150 mg PO BID Qty: 60 RF: 3 (DME) Advanced Gluc Meter Test Strip Strip See Rx Instructions .Route Qty: 100 RF: 0 (DME) blood-glucose meter [Advanced Glucose Meter] Misc See Rx Instructions .Route Qty: 1 RF: 0 Discharge Orders: Discharge Order (Routine); Ordered 09/23/21 Ordered By: Nicky Davis Other Ambulatory Orders: Complete Blood Count w/Auto (Routine) Timeframe: [id number] Location: Determined by Patient Ordered By: Nicky Davis DME: Oxygen (Order) Location: None Selected Ordered By: Nicky Davis Referrals: [facility] [Outside] Rayo Lin MD [Primary Care Provider] - 1 week (Please call on Saturday and make a follow up appointment for 1 week.) Discharge Diet: Diabetic Discharge Activity: Increase activity as tolerated and Oxygen as instructed Patient Instructions: COVID-19 (Coronavirus Disease 2019) (DC), COVID-19: Slow the Coronavirus Spread (DC), Opioid Safety Discharge Attestations Time Spent in Discharge Care*: less than 30 min Quality Metrics Clinical Quality Measures During this hospital stay, did patient experience: None Coding Level of Care Code Acute Chg FW DC note Diagnoses Diabetes E11.9 Hypoxia R09.02 Acute respiratory failure with hypoxia J96.01 COVID-19 U07.1 Morbid obesity with BMI of 40.0-44.9, adult E66.01; Z68.41
== END 2021-09-23 13:59 | disposition home or self-care (01) | DRG 177 ==
LOC: ER 09:47 → ER IP 12:57 → MEDSURG 16:26
PROVIDERS: Emergency Medicine; Internal Medicine; Admitting Provider Internal Medicine; Emergency Provider Family Medicine; PCP Family Medicine Adult Medicine; Visit Provider Internal Medicine
DX: U07.1 COVID-19 (principal); J12.82 Pneumonia due to coronavirus disease 2019; J96.01 Acute respiratory failure with hypoxia; Z68.41 Body mass index [BMI] 40.0-44.9, adult; E66.01 Morbid (severe) obesity due to excess calories; E11.9 Type 2 diabetes mellitus without complications; M10.9 Gout, unspecified; R03.0 Elevated blood-pressure reading, without diagnosis of hypertension; Z87.891 Personal history of nicotine dependence
CPT/HCPCS: 36415; 36416; 36600; 71045; 71275; 80048; 80051; 80053; 82330; 82728; 82803; 82805; 82962; 83036; 83605; 83735; 83880; 84145; 84443; 85025; 85378; 86140; 87040; 87426; 87635; 94640; 96365; 96372; 96375; 99285; J1100; J1650; J1815 ×2; J2405; J2543; J7030; J7626; Q9967

== ENCOUNTER → 2023-01-25 13:52 | Outpatient (BNVA) | payer SELFPAY | PROVIDERS: PCP Family Medicine Adult Medicine; Visit Provider Family Medicine Adult Medicine | DX: M10.9 Gout, unspecified (principal); R03.0 Elevated blood-pressure reading, without diagnosis of hypertension; E66.01 Morbid (severe) obesity due to excess calories; Z68.41 Body mass index [BMI] 40.0-44.9, adult; E11.9 Type 2 diabetes mellitus without complications | CPT/HCPCS: 80053; 83036; 84443; 84550 ==